=== PATIENT | male | born 1935 | race Caucasian/White ===

== ENCOUNTER → 2016-12-25 | Outpatient (CLI) | payer OTHER, MEDICARE ==
--- NOTE | 2016-12-25 15:48 | DX ---
Left Hand - 3 Views Indication: Pain. Evaluate for osteoarthritis. Technique: AP, oblique, and lateral views. Comparison: Left hand series dated June 28, 2016. Findings: The normally mineralized bones are anatomically aligned. Minimal osteoarthritis involves th e interphalangeal joints. The metacarpophalangeal and radiocarpal joint spaces are well preserved. Mi ld productive osteoarthritis of the first metacarpocarpal joint is unchanged since 2016. No erosions. Impression: Minimal osteoarthritis of the interphalangeal joints.
== END ==
LOC: BMCIMAGING 14:48
PROVIDERS: ATTEND Physician Assistant
DX: M79.642 Pain in left hand (principal)

== ENCOUNTER → 2017-01-19 | Outpatient (CLI) | payer OTHER, MEDICARE | LOC: BHFA 10:45 | PROVIDERS: ATTEND Internal Medicine | DX: I48.91 Unspecified atrial fibrillation (principal) ==

== ENCOUNTER → 2017-02-23 | Outpatient (CLI) | payer OTHER, MEDICARE ==
[~2017-02-23] MED LIST: IOPAMIDOL (ISOVUE-300) 100 ML BTL IV ONE
== END ==
LOC: FIMAGING 15:03
PROVIDERS: ATTEND Internal Medicine Gastroenterology
DX: R19.7 Diarrhea, unspecified (principal); R63.4 Abnormal weight loss
CPT/HCPCS: 74177; Q9967

== ENCOUNTER 2017-04-27 15:23 | Emergency (ER) | payer OTHER ==
[2017-04-27 15:32] VITALS: TEMP 98.1
--- NOTE | 2017-04-27 15:52 | EDPHY ---
H & P Time Seen by Provider: 04/27/17 15:42 HPI/ROS: CHIEF COMPLAINT: Epistaxis on Xarelto HISTORY OF PRESENT ILLNESS: 81-year-old male on daily Xarelto for history of atrial fibrillation complaining of epistaxis in the right sided on off for the past 2 hours. No dizziness. No headache. No chest pain. No nausea. No vomiting. No digital trauma PHYSICAL EXAM (Prior to examination, patient consented to physical exam, hands were washed and my usual and customary physical exam procedures followed) 1) GENERAL: Well-developed, well-nourished, alert and oriented. Appears to be in no acute distress. 2) HEAD: Normocephalic 3) HEENT: sclera anicteric. Nasal clip in place removed revealing a clot in the right side which is blown out. There is an area of active bleeding anterior nostril well. No left-sided bleeding. Posterior oropharynx is clear. 4) LUNGS: Breathing comfortably. Smoking Status: Former smoker Constitutional: Initial Vital Signs Temperature (C) 36.7 C 04/27/17 15:30 Heart Rate 75 04/27/17 15:30 Respiratory Rate 18 04/27/17 15:30 Blood Pressure 133/87 H 04/27/17 15:30 O2 Sat (%) 95 04/27/17 15:30 O2 Delivery Mode Room Air Allergies/Adverse Reactions: No Known Allergies Allergy (Verified 06/28/16 18:39) Home Medications: Medication Instructions Recorded ASPIRIN 06/28/16 CALCIUM 06/28/16 Carvedilol 06/28/16 Cephalexin [Keflex (*)] 500 mg PO TID #21 cap 06/28/16 Flomax 06/28/16 Herbals/Supplements -Info Only 06/28/16 Lialda 06/28/16 Multivitamin 06/28/16 Cal Nev Ari 5/325 (*) 06/28/16 VITAMIN E 06/28/16 Vitamin C 06/28/16 Xarelto 06/28/16 Coreg 04/27/17 MDM/Departure - [facility] Procedures: Procedure: Epistaxis control. Indication: nosebleed not controlled by direct pressure. Risks, benefits, alternatives discussed with patient and consent obtained. The right nostril was packed with rapid rhino packing as I did not think that silver nitrate cautery be affective given his Xarelto history. Following the procedure the patient was re-examined and the bleeding was well controlled. The patient tolerated the procedure well. The procedure was performed by myself. At discharge the patient's nose is hemostatic. ED Course/Re-evaluation: The patient was re-evaluated with serial exams most recently at 4:30 p.m. which point he is smiling, eating a lollipop, nasal packing in place, states that he has no further epistaxis. He remains hemodynamically stable with normal pulse rate, normotensive. The patient inquiredabout blood loss and we discussed this. Doubt acute volume loss necessitating admission and/or repletion with blood products. He has no complaints of dizziness, headache, syncope or near syncope. Today is Wednesday. I recommend he follow up with ENT on or Wednesday. Definitely if he develops further epistaxis to return to the ER for re- evaluation if it does not stop after direct pressure. He feels comfortable with this plan.Care and management in consultation with secondary supervising physician Dr Alex . - Depart Disposition: Home, Routine, Self-Care Clinical Impression: Right-sided epistaxis Condition: Good Instructions: Nosebleed (ED) Additional Instructions: If you develop further nosebleeds place direct pressure on the area and if the bleeding does not stop in 20 minutes return to the ER. Referrals: Jhon Pinto MD [Medical Doctor] - 04/30/17
[2017-04-27 17:00] VITALS: BP 153/71; PULSE 74; RESP 16; O2SAT 92
== END 2017-04-27 17:00 | disposition home or self-care (01) ==
PROC: 2Y41X5Z Packing of Nasal Region using Packing Material (ICD-10-PCS; principal; 2017-04-27)
DX: R04.0 Epistaxis (principal); Z79.01 Long term (current) use of anticoagulants; Z79.82 Long term (current) use of aspirin; Z87.891 Personal history of nicotine dependence

== ENCOUNTER → 2018-10-12 | Outpatient (CLI) | payer OTHER, MEDICARE | LOC: FIMAGING 13:14 | PROVIDERS: ATTEND Family Medicine | DX: N28.9 Disorder of kidney and ureter, unspecified (principal); D64.9 Anemia, unspecified; R39.198 Other difficulties with micturition; N32.3 Diverticulum of bladder ==

== ENCOUNTER → 2019-04-11 | Outpatient (CLI) | payer OTHER, MEDICARE | LOC: CIMAGING 12:17 ==

== ENCOUNTER 2019-04-18 17:05 | Inpatient (IN) | payer OTHER, MEDICARE | END 2019-04-20 10:52 | disposition home health service (06) | LOC: F2W 20:01 ==